=== PATIENT | female | born 1975 | race Caucasian/White ===

== ENCOUNTER 2024-04-09 19:13 | Emergency (ER) | payer BC, SELFPAY ==
[2024-04-09 19:14] VITALS: BP 138/100
[2024-04-09] MEDS: MOTRIN 400 MG PO (19:56)
[2024-04-09] MEDS: ADACEL 0.5 ML IM (19:56)
[2024-04-09] MEDS: AUGMENTIN 875 MG/125 MG 1 TABLET PO (19:56)
--- NOTE | 2024-04-09 19:59 | ED.SKININJ ---
HPI-Injury
General
Chief Complaint: Bite
Source: patient and spouse
Exam Limitations: none
Time Seen by Provider: 04/09/24 19:23
Nursing documentation reviewed up to this point in time: agreed with except (Triage note mentions dog is unknown but patient says that it is a friend's dog)
History of Present Illness-Injury
Initial Injury comments:
48-year-old female with no chronic medical issues presents for evaluation of a lip laceration�she was at a friend's house and was petting their dog when it came up and bit her on the lip. thinks that there was a small piece of tissue ripped
out by the dog. She sustained a laceration to the upper lip through the philtrum that does violate the vermilion border. Per patient, friend reported that dog is up-to-date on all vaccinations. Patient says that she has not had recent tetanus
shot. She has no other injuries or complaints.
Review of Systems
Review of Systems
All Other Systems: ROS reviewed and negative except as documented in HPI and ROS
Skin: Reports other (Lip laceration)
Phy Exam
Physical Exam
Physical Exam:
General: Well appearing and non-toxic
HEENT: protecting airway
Neck: appears supple
CV: No evidence of cyanosis
Resp: No accessory muscle use
Abd: Non-distended
Extremities: No deformities
Neuro: Alert
Psych: Normal affect
Skin: Patient has gaping laceration of the upper lip directly through the philtrum that violates the vermilion border and appears to have some missing tissue�edges do not approximate well; pictured below
Scores
Heart Failure Risk
Heart Failure Risk Score: Not Applicable
Heart Score for Chest Pain Patients
STEMI patient?: Not applicable
Withdrawal Assessment of Alcohol
Withdrawal Assessment Completed?: Not applicable
Course
Orders/Labs/Results
Orders:
Orders
04/09/24 19:51
Amoxicillin 875 mg/Clav 125 mg [Augmentin 875 mg/125 mg] 1 tablet PO NOW STA
Tetanus/Diphth/Acelpertussis [Adacel] 0.5 ml IM .ONCE ONE
04/09/24 19:52
Ibuprofen [Motrin] 400 mg PO NOW STA
04/09/24 19:54
Lidocaine/Epinephrine/Tetracai [Let Topical Anesthetic Gel] 3 ml .ROUTE .STK-MED ONE
Vital Signs
Initial and Last Documented VS:
Initial Vital Signs
Pulse Resp BP Pulse Ox
100 24 138/100 98
04/09/24 19:14 04/09/24 19:14 04/09/24 19:14 04/09/24 19:14
Last Documented Vital Signs
Pulse Resp BP Pulse Ox
100 24 138/100 98
04/09/24 19:14 04/09/24 19:14 04/09/24 19:14 04/09/24 19:14
MDM/Problems Addressed
Differential Diagnosis Includes:
Lip laceration
MDM/Problems Addressed:
48-year-old female presents with a upper lip laceration from a dog bite. Dog up-to-date on vaccinations. Patient unsure of last tetanus�will update her tetanus today. Exam as above; she does appear to have some missing tissue from the center of
the lip/philtrum and the edges of the wound do not clearly approximate. Based on the location and appearance I discussed the case with ENT/facial plastics who are willing to come to bedside to help with repair. Will update tetanus, provide dose of
Augmentin. Will need antibiotic prescription after repair.
Laceration repaired by ENT/facial plastics physician at bedside. Recommended follow-up in 1 to 2 weeks for reassessment and removal. Start on prophylactic Augmentin. Spoke to patient about return precautions including signs of infection. All
questions answered.
*Pulse Oximetry
Patient hypoxic: no
*Critical Care Note
Total Time (30-74mins, 75-104mins- exclusive of procedures): Not Applicable
Data Reviewed
Source: patient and spouse
Prescriptions/Medications Considered But Not Given:
Considered need for rabies prophylaxis but with dog well-known and vaccinated no indication
Patient Management
Discussion with other providers: [facility] (Discussed with ENT/facial plastics)
ED Attending Note
-
Portions of this chart may have been created with voice recognition software.� Occasional wrong word or��sound alike� substitutions may have occurred due to the inherent limitations of voice recognition software.
Discharge Plan
Departure
Patient Disposition: Home (Routine Discharge)
Date of Disposition: 04/09/24
Time of Disposition: 20:46
Patient with high blood pressure during this ER visit?: Yes
Discharge Problem:
Laceration of lip, Dog bite
Instructions: Animal Bites (DC), Laceration Repair With Stitches (DC)
Prescriptions:
New
amoxicillin-pot clavulanate 875-125 mg tablet
1 tab PO BID Qty: 14 0RF
Referrals:
Darnell Mccray MD [Active] - Follow up in 5-7 days
Activity Restrictions/Additional Instructions:
You were seen in the emergency room for a laceration to your lip. It was repaired here in the emergency room. You should follow-up with the facial/plastic surgeon�he should call the office to schedule follow-up appointment in 1 to 2 weeks to have
the stitches reassessed. You should take your prophylactic antibiotic as prescribed. If you notice any signs of infection including redness, drainage, swelling or any other concerning symptoms please return to the emergency room to be reassessed.
Thank you for visiting the Emergency Department at [facility].
1. Please schedule a follow up appointment as directed. Call first thing tomorrow morning to make an appointment.
2. If indicated, please take your medications as instructed and indicated on discharge paperwork.
3. If any of your symptoms do not improve, or persist, or become more severe within 6-12 hours, please return to the emergency department for further care.
4. Please return to the emergency department if you develop a headache, neck pain/stiffness, fever greater than 100.4F, chest pain, shortness of breath, persistent nausea, vomiting, slurred speech, difficulty walking, numbness/tingling, weakness,
signs of infection or any other symptoms that are worrisome to you.
Please call [phone] if you have any questions.
Interventions
Interventions:
*Risk Screen - Suicide Last Done: 04/09/24 19:14
*Neglect/Abuse Screening Last Done: 04/09/24 19:14
ED- Fall Risk Assessment Last Done: 04/09/24 19:45
ED-Skin Assessment Last Done: 04/09/24 19:45
Discharge Date and Time
Print Language: ESTONIAN
--- NOTE | 2024-04-09 21:00 | CON.MD ---
Consultation - Medical
-
Chief complaint: lip laceration
History of present illness: This 48-year-old woman was bitten by a dog this evening about an hour before this visit. She presents with a midline upper lip laceration with loss of tissue. The patient has no history of bleeding problems. She does
not have allergies to medications. I was asked to see the patient regarding the lip laceration with Past medical history:
Allergies: No known drug allergies
Medications: Amoxicillin�potassium clavulanate 1 tablet p.o. twice daily
Medical problems: Dog bite, laceration of lip
Hospitalizations: None
Family history: Asked and is noncontributory for this problem
Review of systems: Positive for central upper lip laceration with loss of tissue
Physical examination:
Head: Atraumatic and normocephalic
Eyes: Extraocular movements are intact, pupils are equal and reactive to light
Ears: Normal
Nose: Normal exam without infection or laceration
Oral cavity: The patient has a central lip laceration with a gap between the edges widest at the vermilion border
Neck: Supple without adenopathy
Cranial nerves: 2 through 12 are intact
Impression: This 48-year-old woman was bitten by dog this evening suffering of midline upper lip laceration with some loss of tissue.
Plan/procedure the patient underwent complicated repair of the 2.0 cm laceration after injection of 1% lidocaine with 1 100,000 epinephrine. The wound was cleaned with iodine solution and this was allowed to sit for about 5 minutes and then wiped
off with irrigation. The wound was closed using 4-0 Monocryl suture to close the vermilion border first in the subcutaneous plane. The patient then had a deep suture placed in the right portion of the lip. The skin was then closed using 5-0 plain
gut suture in an interrupted fashion with sutures placed approximately every 3 mm. The patient tolerated this well. Polysporin antibiotic ointment was placed over the lower portion of the incision and Mastisol was placed over the skin area above
the vermilion border and 1/2 inch wide Steri-Strip was placed over this area. The patient tolerated the procedure well. The patient will be placed on Augmentin twice a day to prevent infection. Follow-up in 2 weeks for recheck or sooner if
problems are noted.
== END 2024-04-09 21:02 | disposition home or self-care (01) ==
LOC: EMR 19:13
PROVIDERS: EMERGENCY PHYSICIAN Emergency Medicine; OTHER PHYSICIAN Otolaryngology Facial Plastic Surgery
DX: S01.511A Laceration without foreign body of lip, initial encounter (principal); W54.0XXA Bitten by dog, initial encounter; Z23 Encounter for immunization
CPT/HCPCS: 99285; 13151; 90471; 90715